=== PATIENT | male | born 1935 | race Caucasian/White ===

== ENCOUNTER 2016-06-01 08:35 | Day surgery (SDC) | payer MEDICARE ==
[~2016-06-01 08:35] MED LIST: LACTATED RINGERS 1,000 ML IV SCH
[2016-06-01] MEDS ORDERED: LACTATED RINGERS 0 ML ONE (08:39)
[2016-06-01] MEDS ORDERED: IV START KIT ONE ×3 (08:40→09:30)
[2016-06-01] MEDS ORDERED: LACTATED RINGERS 1,000 ML ONE ×2 (08:47→09:30)
[2016-06-01] MEDS ORDERED: LIDOCAINE 2% (PRES FREE) 5 ML VIAL ONE (10:13)
[2016-06-01] MEDS ORDERED: PROPOFOL 20 ML IV ONE (10:13)
== END 2016-06-01 11:15 | disposition home or self-care (01) ==
LOC: SDC 08:35
PROVIDERS: ATTEND Internal Medicine Gastroenterology
PROC: 0DJD8ZZ Inspection of Lower Intestinal Tract, Via Natural or Artificial Opening Endoscopic (ICD-10-PCS; principal; 2016-06-01)
DX: Z12.11 Encounter for screening for malignant neoplasm of colon (principal); Z86.010 Personal history of colon polyps; E11.9 Type 2 diabetes mellitus without complications; E78.5 Hyperlipidemia, unspecified; I10 Essential (primary) hypertension; M79.1 Myalgia; Z88.2 Allergy status to sulfonamides; Z88.8 Allergy status to other drugs, medicaments and biological substances; Z79.82 Long term (current) use of aspirin
CPT/HCPCS: J7120 ×2; G0105